=== PATIENT | male | born 1980 | race Two or more races ===

== ENCOUNTER 2018-03-13 00:09 | Emergency (ER) | payer OTHER ==
[~2018-03-13] VITALS: Ht 180.3 cm; Wt 95.3 kg
[2018-03-13 00:45] VITALS: BP 126/72
[2018-03-13] MEDS ORDERED: cefTRIAXone SOD 1,000 MG VL IM ONE (01:45)
[2018-03-13] MEDS ORDERED: HYDROcodone-ACET 10/325MG TAB PO ONE (02:15)
== END 2018-03-13 02:19 | disposition home or self-care (01) ==
LOC: ER 00:09
DX: L02.31 Cutaneous abscess of buttock (principal)
CPT/HCPCS: 96372; 99283; J0696

== ENCOUNTER 2019-07-27 05:32 | Emergency (ER) | payer OTHER ==
[~2019-07-27] VITALS: Ht 180.3 cm; Wt 83.9 kg
[2019-07-27] MEDS ORDERED: ACETAMINOPHEN 325 MG TAB PO ONE (07:15)
[2019-07-27] MEDS ORDERED: cefTRIAXone 1GM/50ML D5W 50 ML IV ONE (07:30)
[2019-07-27] MEDS ORDERED: CLINDAMYCIN 600MG IV 50 ML IV ONE (07:30)
[2019-07-27] MEDS ORDERED: KETOROLAC TROMETH 15 mg/ml 1ML VL IV ONE ×2 (07:30→07:45)
[2019-07-27] MEDS ORDERED: KETOROLAC TROMETH 30 MG/ML 1ML VIAL ONE (07:46)
[2019-07-27] MEDS ORDERED: MORPHINE SULF INJ 2 MG/ML SYRINGE 1ML IV ONE (08:30)
[2019-07-27] MEDS ORDERED: ONDANSETRON HCL 4 MG/2 ML VIAL IV ONE (08:30)
[2019-07-27 09:05] VITALS: BP 121/83
== END 2019-07-27 09:11 | disposition home or self-care (01) ==
LOC: ER 05:32
DX: K04.7 Periapical abscess without sinus (principal); L02.02 Furuncle of face
CPT/HCPCS: 96365; 96367; 96375; 99284; J0696; J1885; J2270; J2405; J3490

== ENCOUNTER 2019-10-10 14:27 | Emergency (ER) | payer OTHER ==
[~2019-10-10] VITALS: Ht 180.3 cm; Wt 83.9 kg
[2019-10-10 15:29] VITALS: BP 127/81
== END 2019-10-10 16:59 | disposition home or self-care (01) ==
LOC: ER 14:27
DX: L08.9 Local infection of the skin and subcutaneous tissue, unspecified (principal)

== ENCOUNTER 2020-02-26 18:39 | Emergency (ER) | payer OTHER ==
[~2020-02-26] VITALS: Ht 180.3 cm; Wt 81.6 kg
[2020-02-26 18:45] VITALS: BP 141/88
== END 2020-02-26 20:25 ==
LOC: ER 18:39
DX: C79.89 Secondary malignant neoplasm of other specified sites (principal); C79.51 Secondary malignant neoplasm of bone; L03.116 Cellulitis of left lower limb